=== PATIENT | female | born 1980 | race American Indian/Alaskan Native ===

== ENCOUNTER 2017-04-15 02:28 | Emergency (ER) | payer MEDICAID ==
[2017-04-15 02:34] VITALS: BP 176/99
== END 2017-04-15 04:47 | disposition left against medical advice (07) ==
LOC: ED 02:28
DX: R10.9 Unspecified abdominal pain (principal); Z53.21 Procedure and treatment not carried out due to patient leaving prior to being seen by health care provider

== ENCOUNTER 2019-04-26 15:34 | Emergency (ER) | payer MEDICAID ==
--- NOTE | 2019-04-26 16:45 | Emergency Department Report ---
HPI - General Chief Complaint: Medical Clearance Time Seen by Provider: 04/26/19 16:24 - HPI HPI: 38-year-old -[place] female presents to the emergency department with complaint of being contacted by the Department of Health and being told that she was exposed to a Covid-19 positive patient about 1.5 weeks ago at work. Patient just tarted developing a mild headache and some generalized body aches over the past 1 to 2 days so she came in to be evaluated. She was contacted by the department of health this morning and has set up an account to be checked for temperature and symptoms. She has a past medical history of hypertension. She has not taken anything for symptoms prior to presentation. The patient denies any fever, shortness of breath, cough. ED Past Medical Hx - Past Medical History Previous Medical History?: Yes Hx Hypertension: Yes - Surgical History Past Surgical History?: No - Social History Smoking Status: Current Every Day Smoker Substance Use Type: Marijuana ED Review of Systems ROS: Stated complaint: POSS EXPOSURE TO COVID 19 Other details as noted in HPI Comment: All other systems reviewed and negative Constitutional: denies: chills, fever Eyes: denies: eye pain, vision change ENT: denies: ear pain, throat pain Respiratory: denies: cough, shortness of breath Cardiovascular: denies: chest pain, palpitations Gastrointestinal: denies: abdominal pain, vomiting Genitourinary: denies: dysuria, discharge Musculoskeletal: myalgia. denies: joint swelling Neurological: headache. denies: numbness, paresthesias Physical Exam - Physical Exam Vital Signs: Vital Signs 04/26/19 15:45 Temperature 98.4 F Pulse Rate 80 Respiratory 18 Rate Blood Pressure 151/99 O2 Sat by Pulse 99 Oximetry Physical Exam: GENERAL: The patient is well-developed well-nourished. HENT: Normocephalic. Atraumatic. Patient has moist mucous membranes. EYES: Extraocular motions are intact. NECK: Supple. Trachea is midline. CHEST/LUNGS: Clear to auscultation. There is no respiratory distress noted. HEART/CARDIOVASCULAR: Regular. There is no tachycardia. ABDOMEN: Abdomen is soft, nontender. Patient has normal bowel sounds. SKIN: Skin is warm and dry. NEURO: The patient is awake, alert, and oriented. The patient is cooperative. The patient has no focal neurologic deficits. Normal speech. MUSCULOSKELETAL: There is no tenderness or deformity. There is no evidence of acute injury. ED Course Vital Signs 04/26/19 15:45 Temperature 98.4 F Pulse Rate 80 Respiratory 18 Rate Blood Pressure 151/99 O2 Sat by Pulse 99 Oximetry ED Medical Decision Making - Lab Data Result diagrams: 04/26/19 16:45 04/26/19 16:45 - Medical Decision Making This patient presented to the emergency department with a complaint of some body aches and mild headache along with exposure to a positive Covid-19 patient. Patient was contacted by the department of health this morning but it appears that her exposure may have been almost 2 weeks ago. She denies any fever, shortness of breath, cough, chest pain. She does not appear to have any focal, motor or sensory deficits and her cranial nerves have been intact. The patient was placed in isolation and droplet precautions upon arrival to the emergency department and I continue to wear full PPE gear during her ED course. The patient's labs were unremarkable including CBC and metabolic panel and she was negative on rapid flu. Her vital signs been stable throughout her ED course including being afebrile and no hypoxia. She does not appear to require admission at this time. I did fill out the survey for requesting Covid-19 testing but the patient will not be admitted. She has been instructed to contact the Department of Health to discuss how long her self quarantine should be given an exposure of about 2 weeks ago but development of some mild nonspecific symptoms in the last 24 hours. The patient has been instructed to return to the closest emergency department immediately with any development of shortness of breath, high intractable fever, or with any acute distress. - Differential Diagnosis Influenza, viral URI, Covid-19 Critical Care Time: No Critical care attestation.: If time is entered above; I have spent that time in minutes in the direct care of this critically ill patient, excluding procedure time. ED Disposition Clinical Impression: Elevated blood pressure reading, Exposure to viral disease, Body aches Disposition: DC-01 TO HOME OR SELFCARE Is pt being admited?: No Condition: Stable Instructions: Viral Syndrome (ED), Hypertension (ED) Additional Instructions: I have contacted the health department and filled out the form to see if they a re interested in testing you for Covid-19, the coronavirus. Please contact the Department of Health regarding how long your self quarantine should be given that the exposure was about 2 weeks ago. However you should self quarantine until you are told otherwise. Return to the emergency department immediately with any development of shortness of breath, high intractable fever, or with any acute distress. Try and stay away from foods that are high in salt and caffeinated products. Keep a blood pressure log. Time of Disposition: 17:52
[2019-04-26 16:57] LABS: Basophils # (Auto) 0.1 K/mm3 (0.0-0.1); Basophils % (Auto) 1.2 % (0.0-1.8); Eosinophils # (Auto) 0.2 K/mm3 (0.0-0.4); Eosinophils % (Auto) 2.5 % (0.0-4.3); Hemoglobin 12.4 gm/dl (10.1-14.3); Lymphocytes # (Auto) 2.6 K/mm3 (1.2-5.4); Lymphocytes % (Auto) 29.5 % (13.4-35.0); Mean Corpuscular HGB Conc 32 % (30-34); Mean Corpuscular Volume 74 fl (79-97); Monocytes # (Auto) 0.6 K/mm3 (0.0-0.8); Monocytes % (Auto) 7.4 % (0.0-7.3); Platelet Count 217 K/mm3 (140-440); Red Blood Count 5.27 M/mm3 (3.65-5.03); Red Cell Distribution Width 15.1 % (13.2-15.2)
[2019-04-26 17:13] LABS: BUN/Creatinine Ratio 11; Blood Urea Nitrogen 8 mg/dL (7-17); Hemolysis Index 14
[2019-04-26 17:26] VITALS: BP 167/114
[2019-04-26] MEDS ORDERED: ACETAMINOPHEN 325 MG TAB PO ONE (17:41)
== END 2019-04-26 18:31 | disposition home or self-care (01) ==
LOC: ED 15:34
DX: I10 Essential (primary) hypertension (principal); R52 Pain, unspecified; F17.200 Nicotine dependence, unspecified, uncomplicated; F12.90 Cannabis use, unspecified, uncomplicated; Z20.828 Contact with and (suspected) exposure to other viral communicable diseases
CPT/HCPCS: 36415; 80048; 85025; 87400; 99283

== ENCOUNTER 2019-08-16 16:04 | Emergency (ER) | payer MEDICAID ==
[2019-08-16 19:19] VITALS: BP 147/92
--- NOTE | 2019-08-16 19:19 | Event Note ---
ED Screening Note ED Screening Note: pt presents with headaches for the last couple of days shes states her BAJWA is 8/10 she states her BP has been elevated at home she states she does take her bp medication, states she takes amlodipine, lisinopril, aldactone she states she used an at home arm cuff and her BP was 160/117 no vision changes, no n/v/d, no fever, no numbness, weakness, no speech or gait disturbance, no CP, no SOB PMHx DM and HTN no allergies to meds irregular cycles +smoker +ETOH This initial assessment/diagnostic orders/clinical plan/treatment(s) is/are subject to change based on patients health status, clinical progression and re- assessment by fellow clinical providers in the ED. Further treatment and workup at subsequent clinical providers discretion. Patient/guardian urged not to elope from the ED as their condition may be serious if not clinically assessed and managed. Initial orders include: labs, UA
[2019-08-16] MEDS ORDERED: diphenhydrAMINE 25 MG CAP PO ONE (19:20)
[2019-08-16] MEDS ORDERED: BUTALB/ACETAMINOPHEN/CAFFEINE TAB PO ONE (19:20)
[2019-08-16] MEDS ORDERED: METOCLOPRAMIDE 10 MG TAB PO ONE (19:20)
[2019-08-16] MEDS ORDERED: KETOROLAC 30 MG/1 ML INJ IM ONE (19:45)
--- NOTE | 2019-08-16 19:50 | Emergency Department Report ---
ED General Adult HPI - General Chief complaint: High BP Stated complaint: HBP/HEADACHE Time Seen by Provider: 08/16/19 19:16 Source: patient Mode of arrival: Ambulatory Limitations: No Limitations - History of Present Illness Initial comments: Patient is a 39-year-old -[place] female with a history of hypertension who presents to the ED with acute onset persistent right temporal headache for the last 2 days. Patient also complains of elevated blood pressure at home prior to arrival in the ED. Patient states that she takes spironolactone, N orvasc, and lisinopril HCTZ for her blood pressure but thought that headache was due to the elevated blood pressure. Patient denies dizziness, syncope, nausea, vomiting, chest pain, shortness of breath, neck pain, sore throat, change in vision, palpitation, fever, chills, cough, nasal and sinus congestion or seizures. MD Complaint: elevated blood pressure, headache -: Sudden, days(s) (2) Location: head Radiation: non-radiation Severity scale (0 -10): 7 Quality: aching, sharp Consistency: constant Improves with: none Worsens with: none Associated Symptoms: denies other symptoms, headaches. denies: confusion, chest pain, cough, diaphoresis, fever/chills, loss of appetite, malaise, nausea/vomiting, rash, seizure, shortness of breath, syncope, weakness, other Treatments Prior to Arrival: none - Related Data Previous Rx's Medication Instructions Recorded Last Taken Type Butalb/Acetamin/Caff 50-325-40 1 - 2 tab PO Q6HR PRN #15 tab 08/16/19 Unknown Rx [Fioricet 50-325-40] Ketorolac [Toradol] 10 mg PO Q8H PRN #20 tablet 08/16/19 Unknown Rx Ondansetron [Zofran Odt] 4 mg PO Q6HR PRN #15 tab.rapdis 08/16/19 Unknown Rx Allergies Allergy/AdvReac Type Severity Reaction Status Date / Time No Known Allergies Allergy Unverified 04/15/17 02:53 ED Review of Systems ROS: Stated complaint: HBP/HEADACHE Other details as noted in HPI Constitutional: other (Elevated blood pressure at home) Eyes: denies: eye pain, eye discharge, vision change ENT: denies: ear pain, throat pain Respiratory: denies: cough, shortness of breath, wheezing Cardiovascular: denies: chest pain, palpitations Endocrine: no symptoms reported Gastrointestinal: denies: abdominal pain, nausea, diarrhea Genitourinary: denies: urgency, dysuria, discharge Musculoskeletal: denies: back pain, joint swelling, arthralgia Skin: denies: rash, lesions Neurological: headache (right temporal headache). denies: weakness, paresthesias Psychiatric: denies: anxiety, depression Hematological/Lymphatic: denies: easy bleeding, easy bruising ED Past Medical Hx - Past Medical History Previous Medical History?: Yes Hx Hypertension: Yes - Surgical History Past Surgical History?: No - Social History Smoking Status: Current Every Day Smoker Substance Use Type: Alcohol - Medications Home Medications: Home Medications Medication Instructions Recorded Confirmed Last Taken Type Butalb/Acetamin/Caff 50-325-40 1 - 2 tab PO Q6HR PRN #15 tab 08/16/19 Unknown Rx [Fioricet 50-325-40] Ketorolac [Toradol] 10 mg PO Q8H PRN #20 tablet 08/16/19 Unknown Rx Ondansetron [Zofran Odt] 4 mg PO Q6HR PRN #15 tab.rapdis 08/16/19 Unknown Rx ED Physical Exam - General Limitations: No Limitations General appearance: alert, in no apparent distress - Head Head exam: Present: atraumatic, normocephalic, normal inspection - Eye Eye exam: Present: normal appearance, PERRL, EOMI Pupils: Present: normal accommodation - ENT ENT exam: Present: normal exam, normal orophraynx, mucous membranes moist, TM's normal bilaterally, normal external ear exam - Neck Neck exam: Present: normal inspection, full ROM - Respiratory Respiratory exam: Present: normal lung sounds bilaterally. Absent: respiratory distress, wheezes, rales, stridor, chest wall tenderness, accessory muscle use, decreased breath sounds, prolonged expiratory - Cardiovascular Cardiovascular Exam: Present: regular rate, normal rhythm, normal heart sounds. Absent: systolic murmur, diastolic murmur, rubs, gallop - GI/Abdominal GI/Abdominal exam: Present: soft, normal bowel sounds. Absent: tenderness, guarding, hyperactive bowel sounds - Extremities Exam Extremities exam: Present: normal inspection, full ROM, normal capillary refill - Back Exam Back exam: Present: normal inspection, full ROM. Absent: tenderness, CVA tende rness (R), muscle spasm, paraspinal tenderness - Neurological Exam Neurological exam: Present: alert, oriented X3, CN II-XII intact, normal gait, reflexes normal - Psychiatric Psychiatric exam: Present: normal affect, normal mood - Skin Skin exam: Present: warm, dry, intact, normal color. Absent: rash ED Course Vital Signs 08/16/19 08/16/19 17:20 19:19 Temperature 98.4 F Pulse Rate 70 83 Respiratory 20 Rate Blood Pressure 148/92 Blood Pressure 147/92 [Right] O2 Sat by Pulse 100 Oximetry ED Medical Decision Making - Medical Decision Making This is a 39-year-old -[place] female with a history of hypertension who presents to the ED with acute onset persistent right temporal headache for the last 2 days. Patient also complains of elevated blood pressure at home prior to arrival in the ED. Patient states that she takes spironolactone, Norvasc, and lisinopril HCTZ for her blood pressure but thought that headache was due to the elevated blood pressure. In the ED, patient is alert and oriented x3 and is not in any distress. Patient's vital signs are stable. Patient was treated for headache in the ED and on reevaluation, patient's headache is well controlled with medications. Patient was discharged home on medications for headache and was advised to continue taking her regular blood pressure medications and to follow-up with her primary care physician in 7 to 10 days for reevaluation or return to the ED immediately if symptoms get worse. - Differential Diagnosis Tension headache; cluster headache; anxiety; sinus headache; hypertension Critical care attestation.: If time is entered above; I have spent that time in minutes in the direct care of this critically ill patient, excluding procedure time. ED Disposition Clinical Impression: Uncontrolled stage 2 hypertension Tension-type headache Qualifiers: Headache chronicity pattern: acute headache Intractability: not intractable Qualified Code(s): G44.209 - Tension-type headache, unspecified, not intractable Disposition: DC-01 TO HOME OR SELFCARE Is pt being admited?: No Does the pt Need Aspirin: No Condition: Stable Instructions: Hypertension (ED), Tension Headache (ED) Additional Instructions: Take medication as needed for headache with food, drink plenty of fluids and follow-up with your primary care physician in 7 to 10 days for reevaluation. Continue taking your regular medications for hypertension. Return to the ED immediately if symptoms get worse. Prescriptions: Butalb/Acetamin/Caff 50-325-40 [Fioricet 50-325-40] 1 - 2 tab PO Q6HR PRN #15 tab PRN Reason: Headache Ketorolac [Toradol] 10 mg PO Q8H PRN #20 tablet PRN Reason: Pain Ondansetron [Zofran Odt] 4 mg PO Q6HR PRN #15 tab.rapdis PRN Reason: Nausea Referrals: ANITRA HIGHTOWER NP [Primary Care Provider] - 3-5 Days Time of Disposition: 19:51 Print Language: CHINESE
== END 2019-08-16 20:20 | disposition home or self-care (01) ==
LOC: ED 16:04
DX: I10 Essential (primary) hypertension (principal); G44.209 Tension-type headache, unspecified, not intractable; F17.200 Nicotine dependence, unspecified, uncomplicated; Z79.899 Other long term (current) drug therapy
CPT/HCPCS: 96372; 99282; J1885

== ENCOUNTER 2020-11-21 08:18 | Emergency (ER) | payer MEDICAID, OTHER ==
--- NOTE | 2020-11-21 08:35 | Emergency Department Report ---
ED General Adult HPI - General Chief complaint: Upper Respiratory Infection Stated complaint: CHEST PAIN WHEEZING Time Seen by Provider: 11/21/20 08:26 Source: patient Mode of arrival: Ambulatory Limitations: No Limitations - History of Present Illness Initial comments: Ms. Vega is a 40 years old female with history of bronchitis. Patient presented to the ER complaining of cough, wheezing and shortness of breath for the last 3 days. Patient stated that her cough is productive with yellowish and greenish sputum. Patient denied any fever or chills. Patient stated that she was tested negative for COVID-19 last week. She also stated that she received her first COVID-19 vaccine dose 1 week ago. No nausea or vomiting. - Related Data Previous Rx's Medication Instructions Recorded Last Taken Type Butalb/Acetamin/Caff 50-325-40 1 - 2 tab PO Q6HR PRN #15 tab 08/16/19 Unknown Rx [Fioricet 50-325-40] Ketorolac [Toradol] 10 mg PO Q8H PRN #20 tablet 08/16/19 Unknown Rx Ondansetron [Zofran Odt] 4 mg PO Q6HR PRN #15 tab.rapdis 08/16/19 Unknown Rx Allergies Allergy/AdvReac Type Severity Reaction Status Date / Time No Known Allergies Allergy Verified 11/21/20 08:22 ED Review of Systems ROS: Stated complaint: CHEST PAIN WHEEZING Other details as noted in HPI Comment: All other systems reviewed and negative Constitutional: denies: chills, fever Respiratory: cough, shortness of breath, SOB with exertion, SOB at rest, wheezing Cardiovascular: denies: chest pain, palpitations Gastrointestinal: denies: abdominal pain, nausea, vomiting Musculoskeletal: denies: back pain Neurological: denies: headache, weakness, numbness, paresthesias, confusion, abnormal gait ED Past Medical Hx - Past Medical History Hx Hypertension: Yes - Social History Smoking Status: Current Every Day Smoker Substance Use Type: Alcohol - Medications Home Medications: Home Medications Medication Instructions Recorded Confirmed Last Taken Type Butalb/Acetamin/Caff 50-325-40 1 - 2 tab PO Q6HR PRN #15 tab 08/16/19 Unknown Rx [Fioricet 50-325-40] Ketorolac [Toradol] 10 mg PO Q8H PRN #20 tablet 08/16/19 Unknown Rx Ondansetron [Zofran Odt] 4 mg PO Q6HR PRN #15 tab.belgica 08/16/19 Unknown Rx ED Physical Exam - General Limitations: No Limitations General appearance: alert, in no apparent distress - Head Head exam: Present: atraumatic, normocephalic, normal inspection - Eye Eye exam: Present: normal appearance, PERRL - ENT ENT exam: Present: normal exam, normal orophraynx, mucous membranes moist - Neck Neck exam: Present: normal inspection, full ROM. Absent: tenderness, meningismus - Respiratory Respiratory exam: Present: wheezes, rhonchi. Absent: respiratory distress, rales, accessory muscle use, decreased breath sounds, prolonged expiratory - Cardiovascular Cardiovascular Exam: Present: regular rate, normal rhythm, normal heart sounds - GI/Abdominal GI/Abdominal exam: Present: soft, normal bowel sounds. Absent: distended, tenderness, guarding, rebound, rigid, mass, bruit, pulsatile mass, hernia - Extremities Exam Extremities exam: Present: normal inspection, full ROM, normal capillary refill. Absent: tenderness - Back Exam Back exam: Present: normal inspection, full ROM. Absent: CVA tenderness (R), CVA tenderness (L) - Neurological Exam Neurological exam: Present: alert, oriented X3, CN II-XII intact - Psychiatric Psychiatric exam: Present: normal mood - Skin Skin exam: Present: warm, intact, normal color ED Medical Decision Making - Radiology Data Radiology results: report reviewed - Medical Decision Making Ms. Vega is a 40 years old female with history of bronchitis. Patient presented to the ER complaining of cough, wheezing and shortness of breath for the last 3 days. Patient stated that her cough is productive with yellowish and greenish sputum. Patient denied any fever or chills. Patient stated that she was tested negative for COVID-19 last week. She also stated that she received her first COVID-19 vaccine dose 1 week ago. No nausea or vomiting. Chest x-ray is unremarkable. Patient remained stable in the ER with stable vital sign. Patient given prescription for Zithromax and prednisone and advised to use her albuterol and to follow-up with her primary care physician in the next 2 to 3 days and to return to the ER if she develop any new symptoms. Critical care attestation.: If time is entered above; I have spent that time in minutes in the direct care of this critically ill patient, excluding procedure time. ED Disposition Clinical Impression: Acute asthmatic bronchitis Disposition: 01 HOME / SELF CARE / HOMELESS Is pt being admited?: No Condition: Stable Instructions: Acute Bronchitis (ED), Bronchospasm, Adult, Acute Bronchitis, Adult Referrals: PRIMARY CARE,MD [Referring] - 3-5 Days
--- NOTE | 2020-11-21 09:10 | XRay Report ---
CHEST 2 VIEWS INDICATION: SOB. COMPARISON: None FINDINGS: Support devices: None. Heart: Within normal limits. Lungs/pleura: No acute air space or interstitial disease. No pneumothorax. Additional findings: None. IMPRESSION: No acute findings. Signer Name: Jamison Cloud Jr, MD Signed: 11/21/2020 9:06 AM Workstation Name: [id number]
== END 2020-11-21 10:01 | disposition home or self-care (01) ==
LOC: ED 08:18
DX: J45.909 Unspecified asthma, uncomplicated (principal); J20.9 Acute bronchitis, unspecified; I10 Essential (primary) hypertension; F17.200 Nicotine dependence, unspecified, uncomplicated
CPT/HCPCS: 71046; 99283

== ENCOUNTER 2021-08-07 16:11 | Emergency (ER) | payer MEDICAID ==
--- NOTE | 2021-08-07 16:39 | Emergency Department Report ---
Chief Complaint: Fever Stated Complaint: SICK/FLU SX - HPI History of Present Illness: 40-year-old female reports to the ER with complaints of body aches chills and overall just feeling tired. Patient denies shortness of breath patient denies chest pain patient denies congestion patient reports she feels like she has a flu or COVID. No other acute symptoms reported - Exam Vital Signs: Vital Signs 08/07/21 16:21 Temperature 99.7 F H Pulse Rate 92 H Respiratory 18 Rate O2 Sat by Pulse 98 Oximetry Physical Exam: Patient in no acute distress. No labored breathing noted. Gait is steady. Patient ANO x4 MSE screening note: Focused history and physical exam performed. Due to findings the following was ordered: Flu test ordered. Patient will be further evaluated in the back after seeing another provider. Patient in no acute distress. Screening note complete. ED Disposition for MSE Condition: Stable
[2021-08-07] MEDS ORDERED: dexAMETHasone 4 MG/ML VIAL IM ONE (19:43)
--- NOTE | 2021-08-07 19:52 | Emergency Department Report ---
ED General Adult HPI - General Chief complaint: Fever Stated complaint: SICK/FLU SX Source: patient Mode of arrival: Ambulatory Limitations: No Limitations - History of Present Illness Initial comments: 40-year-old female reports to the ER with complaints of body aches chills and overall just feeling tired. Patient denies shortness of breath patient denies chest pain patient denies congestion patient reports she feels like she has a flu or COVID. No other acute symptoms reported - Related Data Previous Rx's Medication Instructions Recorded Last Taken Type Butalb/Acetamin/Caff 50-325-40 1 - 2 tab PO Q6HR PRN #15 tab 08/16/19 Unknown Rx [Fioricet 50-325-40] Ketorolac [Toradol] 10 mg PO Q8H PRN #20 tablet 08/16/19 Unknown Rx Ondansetron [Zofran Odt] 4 mg PO Q6HR PRN #15 tab.rapdis 08/16/19 Unknown Rx Azithromycin [Zithromax Z-AUDREY] 250 mg PO DAILY 1 Days tab 11/21/20 Unknown Rx Prednisone [predniSONE 10 mg 10 mg PO .TAPER #1 tab.ds.pk 11/21/20 Unknown Rx (6-Day Pack, 21 Tabs)] predniSONE [Deltasone] 40 mg PO QDAY 5 Days #10 tab 08/07/21 Unknown Rx Allergies Allergy/AdvReac Type Severity Reaction Status Date / Time No Known Allergies Allergy Verified 11/21/20 08:22 ED Review of Systems ROS: Stated complaint: SICK/FLU SX Other details as noted in HPI Constitutional: chills. denies: fever Eyes: denies: eye pain, eye discharge, vision change ENT: denies: ear pain, throat pain Respiratory: denies: cough, shortness of breath, wheezing Cardiovascular: denies: chest pain, palpitations Endocrine: no symptoms reported Gastrointestinal: denies: abdominal pain, nausea, diarrhea Genitourinary: denies: urgency, dysuria, discharge Musculoskeletal: myalgia. denies: back pain, joint swelling, arthralgia Skin: denies: rash, lesions Neurological: denies: headache, weakness, paresthesias Psychiatric: denies: anxiety, depression Hematological/Lymphatic: denies: easy bleeding, easy bruising ED Past Medical Hx - Past Medical History Hx Hypertension: Yes - Social History Smoking Status: Current Every Day Smoker Substance Use Type: Alcohol - Medications Home Medications: Home Medications Medication Instructions Recorded Confirmed Last Taken Type Butalb/Acetamin/Caff 50-325-40 1 - 2 tab PO Q6HR PRN #15 tab 08/16/19 Unknown Rx [Fioricet 50-325-40] Ketorolac [Toradol] 10 mg PO Q8H PRN #20 tablet 08/16/19 Unknown Rx Ondansetron [Zofran Odt] 4 mg PO Q6HR PRN #15 tab.rapdis 08/16/19 Unknown Rx Azithromycin [Zithromax Z-AUDREY] 250 mg PO DAILY 1 Days tab 11/21/20 Unknown Rx Prednisone [predniSONE 10 mg 10 mg PO .TAPER #1 tab.ds.pk 11/21/20 Unknown Rx (6-Day Pack, 21 Tabs)] predniSONE [Deltasone] 40 mg PO QDAY 5 Days #10 tab 08/07/21 Unknown Rx ED Physical Exam - General Limitations: No Limitations General appearance: alert, in no apparent distress - Head Head exam: Present: atraumatic, normocephalic - Eye Eye exam: Present: normal appearance - ENT ENT exam: Present: mucous membranes moist - Neck Neck exam: Present: normal inspection - Respiratory Respiratory exam: Present: normal lung sounds bilaterally. Absent: respiratory distress, wheezes - Cardiovascular Cardiovascular Exam: Present: regular rate, normal rhythm. Absent: systolic murmur, diastolic murmur, rubs, gallop - GI/Abdominal GI/Abdominal exam: Present: soft, normal bowel sounds - Extremities Exam Extremities exam: Present: normal inspection - Back Exam Back exam: Present: normal inspection - Neurological Exam Neurological exam: Present: alert, oriented X3 - Psychiatric Psychiatric exam: Present: normal affect, normal mood - Skin Skin exam: Present: warm, dry, intact, normal color. Absent: rash ED Course Vital Signs 08/07/21 08/07/21 16:21 20:22 Temperature 99.7 F H Pulse Rate 92 H 86 Respiratory 18 18 Rate Blood Pressure 135/81 [Left] O2 Sat by Pulse 98 100 Oximetry ED Medical Decision Making - Medical Decision Making 40-year-old female reports to the ER with complaints of body aches chills and overall just feeling tired. Patient denies shortness of breath patient denies chest pain patient denies congestion patient reports she feels like she has a flu or COVID. No other acute symptoms reported. Patient symptoms present more as a cough and cold eyes possible COVID "[facility] does not do COVID testing here in the ER" patient informed to do COVID testing in urgent care or her primary care or a testing COVID syndrome. Patient given instructions for treatment for viral syndrome. Patient informed to eat a well-balanced diet, stay hydrated with water, take multivitamins and avoid crowded places. Vitals suggest no fever. Patient stable for discharge follow-up with primary care provider or return to the ER if symptoms get worse. Patient agrees with plan of care and verbalizes understanding. Vital Signs 08/07/21 08/07/21 16:21 20:22 Temperature 99.7 F H Pulse Rate 92 H 86 Respiratory 18 18 Rate Blood Pressure 135/81 [Left] O2 Sat by Pulse 98 100 Oximetry Critical care attestation.: If time is entered above; I have spent that time in minutes in the direct care of this critically ill patient, excluding procedure time. ED Disposition Clinical Impression: Common cold virus, Generalized body aches, Cough URI (upper respiratory infection) Qualifiers: URI type: unspecified viral URI Qualified Code(s): J06.9 - Acute upper respiratory infection, unspecified Disposition: 01 HOME / SELF CARE / HOMELESS Is pt being admited?: No Does the pt Need Aspirin: No Condition: Stable Instructions: Upper Respiratory Infection, Adult, [id number], Musculoskeletal Pain, Cough, Adult Prescriptions: predniSONE [Deltasone] 40 mg PO QDAY 5 Days #10 tab Time of Disposition: 19:46 Print Language: SPANISH
[2021-08-07 20:23] VITALS: BP 135/81
== END 2021-08-07 21:09 | disposition home or self-care (01) ==
LOC: ED 16:11
DX: J06.9 Acute upper respiratory infection, unspecified (principal); R05.9 Cough, unspecified; J00 Acute nasopharyngitis [common cold]; R52 Pain, unspecified; I10 Essential (primary) hypertension; F17.290 Nicotine dependence, other tobacco product, uncomplicated
CPT/HCPCS: 96372; 99282; J1100